=== PATIENT | female | born 1970 | race Caucasian/White ===

== ENCOUNTER → 2016-07-12 08:44 | Outpatient (CLI) | payer MEDICAID ==
[2016-07-12 09:18] LABS: UDS - AMPHET NEGATIVE QUAL (NEGATIVE); UDS - BARB POSITIVE QUAL (NEGATIVE); UDS - BENZO NEGATIVE QUAL (NEGATIVE); UDS - COCAINE NEGATIVE QUAL (NEGATIVE); UDS - METH NEGATIVE QUAL (NEGATIVE); UDS - OPIATE NEGATIVE QUAL (NEGATIVE); UDS - PCP NEGATIVE QUAL (NEGATIVE); UDS - THC NEGATIVE QUAL (NEGATIVE)
== END | disposition home or self-care (01) ==
LOC: D.LAB 08:44
PROVIDERS: Emergency Medicine
DX: F11.20 Opioid dependence, uncomplicated (principal)

== ENCOUNTER → 2016-07-19 15:04 | Outpatient (CLI) | payer MEDICAID ==
[2016-07-19 15:28] LABS: UDS - AMPHET NEGATIVE QUAL (NEGATIVE); UDS - BARB POSITIVE QUAL (NEGATIVE); UDS - BENZO NEGATIVE QUAL (NEGATIVE); UDS - COCAINE NEGATIVE QUAL (NEGATIVE); UDS - METH NEGATIVE QUAL (NEGATIVE); UDS - OPIATE NEGATIVE QUAL (NEGATIVE); UDS - PCP NEGATIVE QUAL (NEGATIVE); UDS - THC NEGATIVE QUAL (NEGATIVE)
== END | disposition home or self-care (01) ==
LOC: D.LAB 15:04
PROVIDERS: Emergency Medicine
DX: F11.20 Opioid dependence, uncomplicated (principal)

== ENCOUNTER → 2016-07-24 15:10 | Outpatient (CLI) | payer MEDICAID ==
[2016-07-24 15:32] LABS: UDS - AMPHET NEGATIVE QUAL (NEGATIVE); UDS - BARB POSITIVE QUAL (NEGATIVE); UDS - BENZO NEGATIVE QUAL (NEGATIVE); UDS - COCAINE NEGATIVE QUAL (NEGATIVE); UDS - METH NEGATIVE QUAL (NEGATIVE); UDS - OPIATE NEGATIVE QUAL (NEGATIVE); UDS - PCP NEGATIVE QUAL (NEGATIVE); UDS - THC NEGATIVE QUAL (NEGATIVE)
== END | disposition home or self-care (01) ==
LOC: D.LAB 15:10
PROVIDERS: Emergency Medicine
DX: F11.20 Opioid dependence, uncomplicated (principal)

== ENCOUNTER → 2016-07-31 15:40 | Outpatient (CLI) | payer MEDICAID ==
[2016-07-31 16:54] LABS: UDS - AMPHET NEGATIVE QUAL (NEGATIVE); UDS - BARB POSITIVE QUAL (NEGATIVE); UDS - BENZO NEGATIVE QUAL (NEGATIVE); UDS - COCAINE NEGATIVE QUAL (NEGATIVE); UDS - METH NEGATIVE QUAL (NEGATIVE); UDS - OPIATE NEGATIVE QUAL (NEGATIVE); UDS - PCP NEGATIVE QUAL (NEGATIVE); UDS - THC NEGATIVE QUAL (NEGATIVE)
[2016-08-05 07:09] LABS: UDSC - AMPHET Negative ng/mL (Cutoff=1000); UDSC - BARB Positive (Cutoff=300); UDSC - BENZO Negative ng/mL (Cutoff=300); UDSC - COC Negative ng/mL (Cutoff=300); UDSC - METH Negative ng/mL (Cutoff=300); UDSC - OPIATES Negative ng/mL (Cutoff=300); UDSC - PCP Negative ng/mL (Cutoff=25); UDSC - PROPOXY Negative ng/mL (Cutoff=300); UDSC - THC Negative ng/mL (Cutoff=50)
== END | disposition home or self-care (01) ==
LOC: D.LAB 15:40
PROVIDERS: Emergency Medicine
DX: F11.20 Opioid dependence, uncomplicated (principal)

== ENCOUNTER → 2016-08-23 11:53 | Outpatient (CLI) | payer MEDICAID ==
[2016-08-23 12:24] LABS: UDS - AMPHET NEGATIVE QUAL (NEGATIVE); UDS - BARB POSITIVE QUAL (NEGATIVE); UDS - BENZO NEGATIVE QUAL (NEGATIVE); UDS - COCAINE NEGATIVE QUAL (NEGATIVE); UDS - METH NEGATIVE QUAL (NEGATIVE); UDS - OPIATE NEGATIVE QUAL (NEGATIVE); UDS - PCP NEGATIVE QUAL (NEGATIVE); UDS - THC NEGATIVE QUAL (NEGATIVE)
== END | disposition home or self-care (01) ==
LOC: D.LAB 11:53
PROVIDERS: Emergency Medicine
DX: F11.20 Opioid dependence, uncomplicated (principal)

== ENCOUNTER → 2016-09-27 12:07 | Outpatient (CLI) | payer MEDICAID ==
[2016-09-27 12:42] LABS: UDS - AMPHET NEGATIVE QUAL (NEGATIVE); UDS - BARB POSITIVE QUAL (NEGATIVE); UDS - BENZO NEGATIVE QUAL (NEGATIVE); UDS - COCAINE NEGATIVE QUAL (NEGATIVE); UDS - METH NEGATIVE QUAL (NEGATIVE); UDS - OPIATE NEGATIVE QUAL (NEGATIVE); UDS - PCP NEGATIVE QUAL (NEGATIVE); UDS - THC NEGATIVE QUAL (NEGATIVE)
== END | disposition home or self-care (01) ==
LOC: D.LAB 12:07
PROVIDERS: Emergency Medicine
DX: F11.20 Opioid dependence, uncomplicated (principal)

== ENCOUNTER → 2016-11-01 10:13 | Outpatient (CLI) | payer MEDICAID ==
[2016-11-01 10:47] LABS: UDS - AMPHET NEGATIVE QUAL (NEGATIVE); UDS - BARB POSITIVE QUAL (NEGATIVE); UDS - BENZO NEGATIVE QUAL (NEGATIVE); UDS - COCAINE NEGATIVE QUAL (NEGATIVE); UDS - METH NEGATIVE QUAL (NEGATIVE); UDS - OPIATE NEGATIVE QUAL (NEGATIVE); UDS - PCP NEGATIVE QUAL (NEGATIVE); UDS - THC NEGATIVE QUAL (NEGATIVE)
== END | disposition home or self-care (01) ==
LOC: D.LAB 10:00
PROVIDERS: Emergency Medicine
DX: F11.20 Opioid dependence, uncomplicated (principal)

== ENCOUNTER → 2016-12-13 11:02 | Outpatient (CLI) | payer MEDICAID ==
[2016-12-13 11:32] LABS: UDS - AMPHET NEGATIVE QUAL (NEGATIVE); UDS - BARB POSITIVE QUAL (NEGATIVE); UDS - BENZO NEGATIVE QUAL (NEGATIVE); UDS - COCAINE NEGATIVE QUAL (NEGATIVE); UDS - METH NEGATIVE QUAL (NEGATIVE); UDS - OPIATE NEGATIVE QUAL (NEGATIVE); UDS - PCP NEGATIVE QUAL (NEGATIVE); UDS - THC NEGATIVE QUAL (NEGATIVE)
== END | disposition home or self-care (01) ==
LOC: D.LAB 10:45
PROVIDERS: Emergency Medicine
DX: F11.20 Opioid dependence, uncomplicated (principal)

== ENCOUNTER → 2017-01-24 15:48 | Outpatient (CLI) | payer MEDICAID | END | disposition home or self-care (01) | LOC: D.LAB 13:00 | DX: F11.20 Opioid dependence, uncomplicated (principal) ==

== ENCOUNTER → 2017-02-26 14:36 | Outpatient (CLI) | payer MEDICAID ==
[2017-02-26 15:20] LABS: UDS - AMPHET NEGATIVE QUAL (NEGATIVE); UDS - BARB NEGATIVE QUAL (NEGATIVE); UDS - BENZO NEGATIVE QUAL (NEGATIVE); UDS - COCAINE NEGATIVE QUAL (NEGATIVE); UDS - OPIATE NEGATIVE QUAL (NEGATIVE); UDS - PCP NEGATIVE QUAL (NEGATIVE); UDS - THC NEGATIVE QUAL (NEGATIVE)
== END | disposition home or self-care (01) ==
LOC: D.LAB 14:36
PROVIDERS: Emergency Medicine
DX: F11.20 Opioid dependence, uncomplicated (principal)

== ENCOUNTER → 2017-03-12 13:58 | Outpatient (CLI) | payer MEDICAID ==
[2017-03-12 14:33] LABS: UDS - AMPHET NEGATIVE QUAL (NEGATIVE); UDS - BARB NEGATIVE QUAL (NEGATIVE); UDS - BENZO NEGATIVE QUAL (NEGATIVE); UDS - COCAINE NEGATIVE QUAL (NEGATIVE); UDS - OPIATE NEGATIVE QUAL (NEGATIVE); UDS - PCP NEGATIVE QUAL (NEGATIVE); UDS - THC NEGATIVE QUAL (NEGATIVE)
== END | disposition home or self-care (01) ==
LOC: D.LAB 13:58
PROVIDERS: Emergency Medicine
DX: F11.20 Opioid dependence, uncomplicated (principal)

== ENCOUNTER → 2017-04-02 11:03 | Outpatient (CLI) | payer MEDICAID ==
[2017-04-02 11:34] LABS: UDS - AMPHET NEGATIVE QUAL (NEGATIVE); UDS - BARB POSITIVE QUAL (NEGATIVE); UDS - BENZO NEGATIVE QUAL (NEGATIVE); UDS - COCAINE NEGATIVE QUAL (NEGATIVE); UDS - OPIATE NEGATIVE QUAL (NEGATIVE); UDS - PCP NEGATIVE QUAL (NEGATIVE); UDS - THC NEGATIVE QUAL (NEGATIVE)
[2017-04-04 13:16] LABS: UDSC - AMPHET Negative ng/mL (Cutoff=1000); UDSC - BARB Negative ng/mL (Cutoff=300); UDSC - BENZO Negative ng/mL (Cutoff=300); UDSC - COC Negative ng/mL (Cutoff=300); UDSC - METH Negative ng/mL (Cutoff=300); UDSC - OPIATES Negative ng/mL (Cutoff=300); UDSC - PCP Negative ng/mL (Cutoff=25); UDSC - PROPOXY Negative ng/mL (Cutoff=300); UDSC - THC Negative ng/mL (Cutoff=50)
== END | disposition home or self-care (01) ==
LOC: D.LAB 11:03
PROVIDERS: Emergency Medicine
DX: F11.20 Opioid dependence, uncomplicated (principal)

== ENCOUNTER → 2017-04-11 12:52 | Outpatient (CLI) | payer MEDICAID ==
[2017-04-11 13:30] LABS: UDS - AMPHET NEGATIVE QUAL (NEGATIVE); UDS - BARB NEGATIVE QUAL (NEGATIVE); UDS - BENZO NEGATIVE QUAL (NEGATIVE); UDS - COCAINE NEGATIVE QUAL (NEGATIVE); UDS - OPIATE NEGATIVE QUAL (NEGATIVE); UDS - PCP NEGATIVE QUAL (NEGATIVE); UDS - THC NEGATIVE QUAL (NEGATIVE)
== END | disposition home or self-care (01) ==
LOC: D.LAB 12:52
PROVIDERS: Emergency Medicine
DX: F11.20 Opioid dependence, uncomplicated (principal)

== ENCOUNTER → 2017-04-21 15:08 | Outpatient (CLI) | payer MEDICAID ==
[2017-04-21 15:44] LABS: UDS - AMPHET NEGATIVE QUAL (NEGATIVE); UDS - BARB NEGATIVE QUAL (NEGATIVE); UDS - BENZO NEGATIVE QUAL (NEGATIVE); UDS - COCAINE NEGATIVE QUAL (NEGATIVE); UDS - OPIATE NEGATIVE QUAL (NEGATIVE); UDS - PCP NEGATIVE QUAL (NEGATIVE); UDS - THC NEGATIVE QUAL (NEGATIVE)
== END | disposition home or self-care (01) ==
LOC: D.LAB 15:08
PROVIDERS: Emergency Medicine
DX: F11.20 Opioid dependence, uncomplicated (principal)

== ENCOUNTER → 2017-05-23 15:04 | Outpatient (CLI) | payer MEDICAID ==
[2017-05-23 17:04] LABS: UDS - AMPHET NEGATIVE QUAL (NEGATIVE); UDS - BARB POSITIVE QUAL (NEGATIVE); UDS - BENZO NEGATIVE QUAL (NEGATIVE); UDS - COCAINE NEGATIVE QUAL (NEGATIVE); UDS - OPIATE NEGATIVE QUAL (NEGATIVE); UDS - PCP NEGATIVE QUAL (NEGATIVE); UDS - THC NEGATIVE QUAL (NEGATIVE)
[2017-05-27 06:14] LABS: UDSC - AMPHET Negative ng/mL (Cutoff=1000); UDSC - BARB Negative ng/mL (Cutoff=300); UDSC - BENZO Negative ng/mL (Cutoff=300); UDSC - COC Negative ng/mL (Cutoff=300); UDSC - METH Negative ng/mL (Cutoff=300); UDSC - OPIATES Negative ng/mL (Cutoff=300); UDSC - PCP Negative ng/mL (Cutoff=25); UDSC - PROPOXY Negative ng/mL (Cutoff=300); UDSC - THC Negative ng/mL (Cutoff=50)
== END | disposition home or self-care (01) ==
LOC: D.LAB 15:04
PROVIDERS: Emergency Medicine
DX: F11.20 Opioid dependence, uncomplicated (principal)

== ENCOUNTER → 2017-06-23 13:37 | Outpatient (CLI) | payer MEDICAID ==
[2017-06-23 14:01] LABS: UDS - AMPHET NEGATIVE QUAL (NEGATIVE); UDS - BARB NEGATIVE QUAL (NEGATIVE); UDS - BENZO NEGATIVE QUAL (NEGATIVE); UDS - COCAINE NEGATIVE QUAL (NEGATIVE); UDS - OPIATE NEGATIVE QUAL (NEGATIVE); UDS - PCP NEGATIVE QUAL (NEGATIVE); UDS - THC NEGATIVE QUAL (NEGATIVE)
== END | disposition home or self-care (01) ==
LOC: D.LAB 13:37
PROVIDERS: Emergency Medicine
DX: F11.20 Opioid dependence, uncomplicated (principal)

== ENCOUNTER → 2017-07-11 15:09 | Outpatient (CLI) | payer MEDICAID ==
[2017-07-11 15:35] LABS: UDS - AMPHET NEGATIVE QUAL (NEGATIVE); UDS - BARB NEGATIVE QUAL (NEGATIVE); UDS - BENZO NEGATIVE QUAL (NEGATIVE); UDS - COCAINE NEGATIVE QUAL (NEGATIVE); UDS - OPIATE NEGATIVE QUAL (NEGATIVE); UDS - PCP NEGATIVE QUAL (NEGATIVE); UDS - THC NEGATIVE QUAL (NEGATIVE)
== END | disposition home or self-care (01) ==
LOC: D.LAB 15:09
PROVIDERS: Emergency Medicine
DX: F11.20 Opioid dependence, uncomplicated (principal)